=== PATIENT | male | born 1960 | race Caucasian/White ===

== ENCOUNTER → 2018-08-08 | Outpatient (CLI) | payer MEDICAID | LOC: FIMAGING 10:57 | PROVIDERS: ATTEND Internal Medicine | DX: R06.02 Shortness of breath (principal); H53.9 Unspecified visual disturbance ==

== ENCOUNTER 2018-09-13 09:32 | Day surgery (SDC) | payer MEDICAID ==
[2018-09-13] MEDS ORDERED: DIAZEPAM 5 MG TAB PO ONE (09:35)
[2018-09-13] MEDS ORDERED: FAMOTIDINE 20 MG TAB PO ONE (09:35)
[2018-09-13] MEDS ORDERED: ASPIRIN EC 325 MG TAB PO ONE ×2 (09:35→10:01)
[2018-09-13] MEDS ORDERED: NS 1,000 ML IV ONE (09:35)
[2018-09-13] MEDS ORDERED: diphenhydrAMINE 25 MG CAP PO ONE ×2 (09:35→10:01)
[2018-09-13] MEDS ORDERED: FAMOTIDINE 20 MG TAB ONE (10:01)
[2018-09-13] MEDS ORDERED: DIAZEPAM 5 MG TAB ONE (10:02)
[2018-09-13 10:08] LABS: PLATELET COUNT 271 10^3/uL (150-400)
[2018-09-13 10:15] LABS: INR 0.94 (0.83-1.16); PROTIME(PATIENT) 12.8 SEC (12.0-15.0)
[2018-09-13] MEDS ORDERED: fentaNYL 100 MCG/2 ML INJ ONE (10:33)
[2018-09-13] MEDS ORDERED: LIDOCAINE 1% 300 MG/30 ML SDV ONE (10:33)
[2018-09-13] MEDS ORDERED: MIDAZOLAM 2 MG/2 ML VIAL ONE (10:33)
[2018-09-13] MEDS ORDERED: IOPAMIDOL (ISOVUE-370) 150 ML BTL IV ONE (10:34)
[2018-09-13] MEDS ORDERED: VERAPAMIL 5 MG/2 ML VIAL ONE (11:05)
[2018-09-13] MEDS ORDERED: HEPARIN 10,000 UNIT/10 ML MDV (1,000 UNIT/ML) ONE (11:05)
--- NOTE | 2018-09-13 11:05 | PDHPUP ---
History & Physical Update H&P update statement: This history and physical update is based on an assessment of the patient which was completed after admission or registration (within 24 hours), but prior to the surgery/procedure. H&P update: H&P reviewed & patient examined, no change in patient's condition since H&P completed
--- NOTE | 2018-09-13 11:05 | PDPROPOC ---
Sedation Plan of Care Sedation Plan of Care: vital signs stable, mental status noted, patient educated of risks, benefits, alternatives, patient can tolerate sedation ASA Classification: ASA 1 Planned drugs: fentanyl, midazolam Mallampati Score: Class 2 Mallampati Reference Image: Patient passed 3-3-2 rule?: Yes
[2018-09-13] MEDS ORDERED: ONDANSETRON 4 MG/2 ML VIAL IVP PRN (12:04)
[2018-09-13] MEDS ORDERED: NITROGLYCERIN 0.4 MG BTL SL PRN (12:04)
[2018-09-13] MEDS ORDERED: ATROPINE SULFATE 1 MG/10 ML SYR IVP PRN (12:04)
--- NOTE | 2018-09-13 12:10 | PDDXCAT ---
Diagnostic Cath Note - . Date: 09/13/18 [employer]: Fouzia Indication: other ([place] [employer] functional class 2 dyspnea on exertion associated with high risk stress myocardial perfusion imaging.) - Procedure Access: right wrist - Materials Left Heart Cath size: 5F Left Heart Cath materials: JL3.5, JR4.0, pigtail, Lawson's R - Findings-Left Heart Catheterization LM: Large caliber vessel. Appropriate bifurcation into the LAD and circumflex. Angiographically free of disease. LAD: Moderate caliber transapical vessel. 3 principal diagonal branches. High- grade (80%) lesion in the mid LAD following the 1st diagonal branch. The remainder of the LAD and branch vessels contain luminal irregularities. LCX: Small caliber vessel becoming diminutive after the origin of 2 obtuse marginal branches. There is an 80% ostial 1st obtuse marginal lesion. RCA: Long area of occlusion in the proximal vessel. There is evidence of contralateral collateralization to the right posterolateral branch and PDA with excellent opacification of this distal vessel. This is a large caliber vessel that supplies a large portion of the myocardium. EDP: 10 mmHg. LVEF: 45%. Diaphragmatic akinesis. Anterolateral hypokinesis. Ventricular tachycardia during the injection resulting in significant mitral regurgitation. Wall motion: As above. Complications: None. Estimated blood loss: <50ml Closure method: TR Band Assessment: 1. 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 2. Mild ischemic cardiomyopathy with an ejection fraction of approximately 45% with akinesis of the diaphragmatic segment and hypokinesis of the anterolateral wall. 3. Stress myocardial perfusion imaging indicating a fixed inferior defect of about 27%. 4. Symptoms of exertional dyspnea. Plan: The patient will have a myocardial viability study and be considered for CABG and MAZE. Intervention: None.
--- NOTE | 2018-09-13 16:27 | CPEKG ---
Test Reason : OPEN Blood Pressure : / mmHG Vent. Rate : 075 BPM Atrial Rate : 074 BPM P-R Int : 140 ms QRS Dur : 088 ms QT Int : 394 ms P-R-T Axes : -05 029 -25 degrees QTc Int : 441 ms Sinus rhythm Inferior infarct, age indeterminate Confirmed by Sigrid Gonzalez ([id number]) on 09/13/2018 4:26:26 PM Referred By: Confirmed By:Sigrid Gonzalez
[2018-09-13] MEDS ORDERED: METOPROLOL TARTRATE 50 MG TAB PO SCH (21:00)
== END 2018-09-13 15:01 | disposition home or self-care (01) ==
LOC: FCATH 09:32
PROVIDERS: ATTEND Internal Medicine Cardiovascular Disease
PROC: B2111ZZ Fluoroscopy of Multiple Coronary Arteries using Low Osmolar Contrast (ICD-10-PCS; principal; 2018-09-13)
PROC: B2151ZZ Fluoroscopy of Left Heart using Low Osmolar Contrast (ICD-10-PCS; principal; 2018-09-13)
PROC: 4A023N7 Measurement of Cardiac Sampling and Pressure, Left Heart, Percutaneous Approach (ICD-10-PCS; principal; 2018-09-13)
DX: I25.10 Atherosclerotic heart disease of native coronary artery without angina pectoris (principal); I25.5 Ischemic cardiomyopathy; R06.09 Other forms of dyspnea
CPT/HCPCS: J1644; J2250; J3010; Q9967